=== PATIENT | female | born 1960 ===

== ENCOUNTER 2020-07-11 15:00 | Outpatient (CLI) | payer OTHER | END 2020-07-11 17:13 | disposition home or self-care (01) | LOC: PPH VACUNA 15:00 | DX: Z23 Encounter for immunization (principal) ==

== ENCOUNTER → 2020-08-01 | Outpatient (CLI) | payer OTHER | END | disposition home or self-care (01) | LOC: PPH VACUNA 14:10 | DX: Z23 Encounter for immunization (principal) ==